=== PATIENT | female | born 2000 | race Caucasian/White ===

== ENCOUNTER 2021-04-29 15:05 | Outpatient (REF) | payer BC, SELFPAY ==
[2021-04-29 14:26] LABS: Abs Immature Grans 0.04 10^3/uL (0.0-0.06); Absolute Basophil Count 0.06 10^3/uL (0.0-0.2); Absolute Eosinophil Count 0.99 10^3/uL (0.0-0.7); Absolute Lymphocyte Count 2.96 10^3/uL (1.2-3.4); Basophils % 0.5; HCT 44.8 % (36.0-46.0); HGB 14.2 g/dL (11.2-15.7); Immature Grans % 0.3; Lymphocytes % 23.8; MCH 26.6 pg (27.0-33.0); MCHC 31.7 % (32.0-36.0); MCV 83.9 fL (80-95); MPV 10.1 fL (8.0-11.0); Monocytes % 6.8; Neutrophils % 60.6; Nucleated RBC 0 %; Platelet Count 452 10^3/uL (130-400); RBC 5.34 10^6/uL (3.93-5.22); RDW 13.4 % (11.7-14.6); RDW-SD 41.5 fL; WBC 12.43 10^3/uL (4.4-10.8)
[2021-04-29 14:29] LABS: Absolute Monocyte Count 0.85 10^3/uL (0.1-0.8); Absolute Neutrophil Count 7.53 10^3/uL (1.2-6.7)
[2021-04-29 14:43] LABS: ALT 30 U/L (14-59); AST 22 U/L (15-37); Albumin 3.9 g/dL (3.4-5.0); Alkaline Phosphatase 101 U/L (46-116); Anion Gap 12.2 mmol/L (3-11); BUN 6 mg/dL (7-18); Bilirubin, Total 0.3 mg/dL (0.2-1.0); CO2 23.8 mmol/L (21.0-32.0); CREATININE 0.8 mg/dL (0.55-1.02); Calcium 9.3 mg/dL (8.5-10.1); Chloride 101 mmol/L (98-107); Glucose 79 mg/dL (74-106); Potassium 3.9 mmol/L (3.5-5.1); Sodium 137 mmol/L (136-145); Total Protein 8.4 g/dL (6.4-8.2)
[2021-04-30 16:28] LABS: COVID-19 RT-PCR UVMMC Result Negative (Negative)
== END 2021-04-29 15:06 | disposition home or self-care (01) ==
LOC: LBN 15:05
PROVIDERS: Visit Provider Physician Assistant Medical
DX: R11.10 Vomiting, unspecified (principal); Z20.822 Contact with and (suspected) exposure to COVID-19
CPT/HCPCS: 80053; U0003; 85025

== ENCOUNTER 2021-10-15 15:29 | Outpatient (REF) | payer BC, SELFPAY ==
[2021-10-16 13:42] LABS: COVID-19 RT-PCR UVMMC Result Negative (Negative)
== END 2021-10-15 15:30 | disposition home or self-care (01) ==
LOC: LBN 15:29
PROVIDERS: Visit Provider Physician Assistant Medical
DX: Z20.822 Contact with and (suspected) exposure to COVID-19 (principal)
CPT/HCPCS: 87077; U0003; 87070

== ENCOUNTER → 2022-01-23 00:50 | Outpatient (CLI) | payer BC, SELFPAY ==
--- NOTE | 2022-01-23 07:45 | DI.RAD_ITS ---
Exam(s) XR KNEE LT 4V AP,LAT,IRAJ,PAT EXAM: XR KNEE LT 4V AP,LAT,IRAJ,PAT CLINICAL HISTORY: assess bones, joint space; no trauma, chronic pain,lt lat knee pain, m25.56. TECHNIQUE: 2D digital imaging was performed. COMPARISON: No exams were available for comparison FINDINGS: Four views No evidence of fracture. No prominent joint effusion. No joint space narrowing. No osteochondral d efects. No osteophytes. Bone density is normal. No osseous lesions. IMPRESSION: No significant radiographic findings on these four views of the right knee. DATA REPOSITORY: RADIATION DOSE DELIVERED:
== END ==
PROVIDERS: PCP Nurse Practitioner Adult Health; Visit Provider Nurse Practitioner Adult Health
DX: M25.562 Pain in left knee (principal); G89.29 Other chronic pain
CPT/HCPCS: 73564

== ENCOUNTER 2022-06-15 07:59 | Day surgery (SDC) | payer BC, SELFPAY ==
[2022-06-15] VITALS (9 sets, daily range): BP systolic 127–145; BP diastolic 78–98; PULSE 74–95; RESP 13–28; TEMP 36.2–36.8; O2SAT 97–100; BMI 40.3
--- NOTE | 2022-06-15 06:28 | W.ANESPRE ---
General Info Date of Service Date Performed: 06/15/22 Height: 5 ft 5 in Weight: 110 kg Body Mass Index (BMI): 40.3 Surgical Procedure: Operation Date: 06/15/22 10:10 Proposed Procedure Side Surgeon p Septoplasty Nasal Frank Kevin MD Meds Allergies and Home Medications Allergies Allergy/AdvReac Type Severity Reaction Status Date / Time artificial sugar AdvReac Mild GI distress Uncoded 06/12/22 12:36 Home Medication Medication Instructions Recorded levonorgestrel 0.15 mg-ethinyl 1 tab PO DAILY #84 tabs 01/21/22 estradiol 0.03 mg tablet (Chateal EQ (28)) Current Visit Medications: Current Medications Generic Name Dose Route Start Last Admin Trade Name Freq PRN Reason Stop Dose Admin Tranexamic Acid 1,000 mg/ 60 mls @ 360 mls/hr 06/15/22 06:00 Sodium Chloride IVPB 06/15/22 16:00 PREOP KELLY Ringer's Solution 1,000 mls @ 80 mls/hr 06/15/22 06:00 IV 06/24/22 23:59 INFUSION KELLY Cefazolin Sodium/Dextrose 2 gm in 50 mls @ 100 mls/hr 06/15/22 06:00 Ancef Duplex IVPB 06/15/22 16:00 PREOP KELLY IV Miscellaneous Supplies 1 each 06/15/22 06:00 Iv Access IV 06/24/22 23:59 DIRECTED KELLY Sodium Chloride 0 ml 06/15/22 06:00 Normal Saline Flush 10 Ml Syr IV 06/24/22 23:59 PRN PRN Sodium Chloride 0 ml 06/15/22 06:00 Normal Saline 10 Ml Vial IJ 06/24/22 23:59 DIRECTED PRN Sterile Water 0 ml 06/15/22 06:00 Water,Injection,Sterile 10 Ml Vial IJ 06/24/22 23:59 DIRECTED PRN PFSH Active Problems Active Problems: Problem Status Onset Code Nasal obstruction J34.89 Left lateral knee pain ~2014 M25.562 Anxiety F41.9 Deviated nasal septum J34.2 Tonsil stone J35.8 Oral contraceptive pill surveillance Z30.41 Medical History Medical History (Updated 06/15/22 @ 08:49 by Adele Chandler) History of anxiety Surgical History Surgical History H/O wisdom tooth extraction (~2018) Tobacco Smoking/Tobacco Use Status: Never Passive smoking exposure: No Alcohol Alcohol Intake: never Substance Use Substance use: Never Substance use type: does not use Vital Signs and Lab Results Vital Signs Most Recent Vital Signs in EMR: Temp Pulse Resp BP Pulse Ox 36.8 C 89 18 145/86 H 100 06/15/22 08:49 06/15/22 08:49 06/15/22 08:49 06/15/22 08:49 06/15/22 08:49 Lab Results Blood Type / Crossmatch: No Data to Display Complete Blood Count: No Data to Display Complete Metabolic Panel: No Data to Display Liver Function Panel: No Data to Display Coagulation Panel: No Data to Display Cardiac Panel: No Data to Display Arterial Blood Gas: No Data to Display Venous Blood Gas: No Data to Display Pancreas Panel: No Data to Display Thyroid Panel: No Data to Display Infectious Disease: No Data to Display Blood Cultures: No Data to Display Toxicology Panel: No Data to Display Panel: No Data to Display Anesthesia Assessment and Plan Anesthesia History Personal History: No History of Anesthesia Complications Family History: No Family History of Anesthesia Complications Exercise Tolerance Exercise Tolerance: Metabolic Equivalents>4 Pertinent Negatives Pertinent Negatives: No Symptoms of GERD, No Major Cardiovascular Symptoms or Complaints, No Major Pulmonary Symptoms or Complaints and No History of CVA/TIA Cardiac & Pulmonary Exam Cardiac Exam: Normal S1/S2 Heart Sounds Pulmonary Exam: Clear Bilateral Breath Sounds Implantable Cardiac Device Does patient have a Pacemaker or an ICD?: No Airway Exam Known Difficult Airway: No Mallampati Class: 2 Mouth Opening: Normal (> 3cm) Thyromental Distance: Greater than 3 cm Neck Range of Motion: Full ROM Neck Circumference: Normal Teeth Condition: Normal Dentition ASA Classification ASA Score: ASA 2 Emergency Case?: No NPO Status NPO Status: NPO Clears >2 hours, Solids >8 hours Status Status: Negative HCG Anesthesia Plan Resuscitation Status: Full Code Anesthesia Technique: General Anesthesia Airway Planned: Endotracheal Tube Monitors Used: Standard Monitors
[2022-06-15] MEDS: Lactated Ringers 1,000 ML 80 ML IV (09:22)
--- NOTE | 2022-06-15 09:55 | W.PM.DSUDISC ---
Date of service: 06/15/22 Time of Service: 09:55 Discharge Plan Disposition Patient Disposition: HOME Condition: Good Discharge Details Reason For Visit: Septoplasty Attending Provider: Frank Kevin Primary Care Provider: Margareth Hua Home Meds and New Rx's Prescriptions: No Action levonorgestrel-ethinyl estrad [Chateal EQ (28)] 0.15-0.03 mg tablet 1 tab PO DAILY Qty: 84 3RF Discharge Instructions Additional Instructions: My cell phone number is [phone]. Please call with any questions or concerns. If you are unable to reach this number and DMin emergency, proceed to the emergency room Stand Alone Forms: ENT-Septo Instr. Dorita Referrals: Frank Kevin MD [ [facility] STAFF PHYSICIAN] - (, 9 AM, my office) DS: Diagnosis Discharge Diagnosis (1) Deviated nasal septum: Status: Acute (2) Nasal obstruction: Status: Acute
[2022-06-15] MEDS: Acetaminophen 500 MG TAB 1000 MG PO (10:03)
[2022-06-15] MEDS: ceFAZolin 2 GM/50 ML BAG IVPB (10:14)
[2022-06-15] MEDS: Cocaine Nasal 4% 4 ML BTL (10:32)
[2022-06-15] MEDS: Bacitracin 30 GM TUBE (10:32)
[2022-06-15] MEDS: Lidocaine 1% Pres-Free W/EPI 1/200,000 10 ML VIAL (10:32)
--- NOTE | 2022-06-15 11:22 | ROE_ITS ---
Date of service: 06/15/22 Time of Service: : Operative Note Operative Note DATE OF PROCEDURE: 06/15/22 PRE-OP DIAGNOSIS: Deviated nasal septum with chronic nasal obstruction POST-OP DIAGNOSIS: same PROCEDURE: Same SURGEON: Frank Kevin ANESTHESIA TYPE: General LMA/ETT Refer to Anesthesia Record ESTIMATED BLOOD LOSS: 20 PATHOLOGY: other (Septal cartilage) COMPLICATIONS: None Patient's condition: stable Indications: Patient has chronic nasal obstruction secondary to a deviated nasal septum. This failed to respond to maximal medical therapy. Options were explained to the patient regarding further management. She elected to undergo the above procedure. Consent was filled out and signed prior to surgery. H&P was reviewed. She had no changes. Questions were answered before the time of surgery Findings: Markedly deviated quadrangular cartilage with multiple fracture planes, and significant scar tissue between the cartilage and the overlying mucosa bilaterally. Displacement of the cartilage from the maxillary crest. Procedure Description: After obtaining an adequate level of general endotracheal anesthesia the patient was positioned in a supine position and prepped and draped in appropriate fashion. 1% lidocaine with 1/100,000 epinephrine was injected in the septal mucosa bilaterally and cocaine soaked nasal pledgets were placed in the nasal cavity and left for 5 minutes at which point time they were removed and a left- sided hemitransfixion incision was made over the tip of the anterior edge of the quadrangular cartilage which protruded into the left nasal cavity. Submucoperichondrial and submucoperiosteal planes were then developed along both sides of the nasal septum posteriorly revealing multiple fracture planes including 1 approximately 0.75 cm from the nasal tip. Once the cartilage had been skeletonized, the fracture plane anteriorly was disrupted and the posterior quadrangular cartilage which was deviated was removed. The anterior quadrangular cartilage which remained was trimmed so that it sat squarely on the maxillary spine and the septum was examined revealing a nicely medialized septum with no significant deviation to 1 side or the other. Nasal tip was felt to be stable. The columella was stable. The nasal dorsum was stable. A small drain hole was made on the right, making sure that there was no damage to the mucosa along the left side. After ensuring adequate hemostasis, the hemitransfixion incision was closed with four-point 0 chromic suture. With this, the quadrangular cartilage remnant seem to sit nicely in the midline and did not appear to want to drift to one side of the other. Katz splints were placed along the septum bilaterally and sutured into place using a single Prolene suture. This was a 2.0 Prolene. The patient was then awakened and extubated by anesthesia and taken recovery room in stable condition. Mucosa on both sides of the nasal septum appeared viable at the end of the case. There was good tito and refill. I was present for the entire case.
[2022-06-15] MEDS: HYDROmorphone 2 MG/ML SYR IVP ×2 (11:47→11:59)
[2022-06-15] MEDS: Normal Saline 10 ML VIAL IJ (11:48)
--- NOTE | 2022-06-15 14:12 | W.ANESPOSTOP ---
Postoperative Evaluation Date, Time and Location Date Performed: 06/15/22 Time Performed: 14:13 Patient Location: Day Surgery Unit Vital Signs Most Recent Imported Vital Signs: Most Recent Vital Signs Temp Pulse Resp BP Pulse Ox 36.4 C L 92 H 20 130/88 98 06/15/22 12:45 06/15/22 12:45 06/15/22 12:45 06/15/22 12:45 06/15/22 12:45 Pain Score Most Recent Pain Score: Most Recent Pain Score Pain Level 2 06/15/22 12:45 Assessment Mental Status: Awake (Alert & Oriented to Patient Baseline) Airway and Respiratory Function: Patent airway with normal (patient baseline) respiratory exam Cardiovascular Function: Hemodynamically Stable Hydration Status: Adequately Hydrated Nausea & Vomiting: No Nausea or Vomiting Pain: Pain is tolerable per patient Peripheral Nerve Block: Patient did not receive a nerve block Postoperative Comments:: Seen earlier today. denied questions
== END 2022-06-15 13:15 | disposition home or self-care (01) ==
PROVIDERS: PCP Nurse Practitioner Adult Health; Visit Provider Otolaryngology
PROC: (CPT 30520; principal; 2022-06-15 10:00)
DX: J34.2 Deviated nasal septum (principal); J34.89 Other specified disorders of nose and nasal sinuses
CPT/HCPCS: 30520; 81025; J0690; J1100; J1170; J2250; J2405; J2704; J3010

== ENCOUNTER 2023-02-08 15:06 | Outpatient (REF) | payer BC, SELFPAY ==
--- NOTE | 2023-02-08 14:30 | PAPFT_PTH ---
PATIENT: Yaya Rojas LOC: [facility] U#:[id number] AGE/SX: 22/F ROOM: RE02/08/[address]: Margareth Hua APRN : 2000 BED: DIS: 02/08/2023 SPEC #: [id number] RECD: 02/08/23 17:12 STATUS: ANNEL REQ #: [id number] JENNIFER: 02/08/23 14:[address]: Margareth Hua DEPT: [facility] Cytology RECD BY: Abimbola Love Tissues: 1 - CX/ENDOCX FOR PAP SMEARS Procedures: PAP THIN PREP/UVM Screening Comments: [id number]
[2023-02-10 12:57] LABS: Chlamydia Result Negative (Negative); GC Result Negative (Negative)
== END 2023-02-08 15:07 | disposition home or self-care (01) ==
LOC: LBN 15:06
PROVIDERS: PCP Nurse Practitioner Adult Health; Visit Provider Nurse Practitioner Adult Health
DX: Z11.4 Encounter for screening for human immunodeficiency virus [HIV] (principal); Z11.51 Encounter for screening for human papillomavirus (HPV); Z11.3 Encounter for screening for infections with a predominantly sexual mode of transmission
CPT/HCPCS: 87491; 87591; 88142; 87480; 87510; 87660

== ENCOUNTER 2023-12-11 10:51 | Outpatient (REF) | payer BC, SELFPAY | END 2023-12-11 10:52 | disposition home or self-care (01) | LOC: NCHCN 10:51 | PROVIDERS: PCP Nurse Practitioner Adult Health; Visit Provider Physician Assistant Medical | DX: J02.9 Acute pharyngitis, unspecified (principal) | CPT/HCPCS: 87070 ==